=== PATIENT | female | born 1995 | race Caucasian/White ===

== ENCOUNTER 2019-11-27 16:17 | Emergency (ER) | payer BC ==
[2019-11-27] MEDS ORDERED: Bacitracin Oint 1 GM U/D Packet TOP ONE (17:02)
--- NOTE | 2019-11-27 17:22 | EDM.PDOC ---
ED HPI GENERAL MEDICAL PROBLEM - General Chief Complaint: Skin Complaint Stated Complaint: FISH HOOK/LT LEG Time Seen by Provider: 11/27/19 17:01 Source of Information: Reports: Patient, Family, RN Notes Reviewed History Limitations: Reports: No Limitations - History of Present Illness INITIAL COMMENTS - FREE TEXT/NARRATIVE: 24-year-old female presents emergency department with a fishhook to her left leg no functional complaints left leg Pain Score (Numeric/FACES): 3 - Related Data Allergies Allergy/AdvReac Type Severity Reaction Status Date / Time No Known Allergies Allergy Verified 11/27/19 16:36 Home Meds: Home Meds Citalopram Hydrobromide [Celexa] 20 mg PO DAILY 11/27/19 [History] Past Medical History Respiratory History: Reports: Asthma Psychiatric History: Reports: Depression Social & Family History - Tobacco Use Smoking Status *Q: Never Smoker - Recreational Drug Use Recreational Drug Use: No ED ROS GENERAL - Review of Systems Review Of Systems: See Below Skin: Reports: Wound ED EXAM, SKIN/RASH Exam: See Below Text/Narrative:: Barbed fishhook is appreciated in the left thigh after local anesthesia with 1% lidocaine approximately 2 cc an 18-gauge needle is used to cover the meri on the fishhook and then it is backed out Exam Limited By: No Limitations General Appearance: Alert, WD/WN, No Apparent Distress Course - Vital Signs Last Recorded V/S: Last Vital Signs Temp 95.8 F L 11/27/19 16:34 Pulse 88 11/27/19 16:34 Resp 16 11/27/19 16:34 BP 99/61 11/27/19 16:34 Pulse Ox 96 11/27/19 16:34 - Orders/Labs/Meds Meds: Medications Discontinued Medications Generic Name Dose Route Start Last Admin Trade Name Ethanq PRN Reason Stop Dose Admin Bacitracin 1 dose 11/27/19 17:02 11/27/19 17:09 Bacitracin Oint 1 Gm TOP 11/27/19 17:03 1 dose ONETIME ONE Administration Lidocaine HCl 5 ml 11/27/19 17:02 11/27/19 17:09 Xylocaine-Mpf 1% INJECT 11/27/19 17:03 5 ml ONETIME ONE Administration Departure - Departure Time of Disposition: 17:20 Disposition: Home, Self-Care 01 Condition: Fair Clinical Impression: Fish hook injury of left lower leg Qualifiers: Encounter type: initial encounter Qualified Code(s): S89.92XA - Unspecified injury of left lower leg, initial encounter - Discharge Information Referrals: PCP,None [Primary Care Provider] - Additional Instructions: Follow wound care instruction sheet, follow-up primary care as needed Sepsis Event Note (ED) - Evaluation Sepsis Screening Result: No Definite Risk - Focused Exam Vital Signs: Vital Signs Temp Pulse Resp BP Pulse Ox 11/27/19 16:34 95.8 F L 88 16 99/61 96 - Assessment/Plan Plan: Assessment Acuity = acute Site and laterality = fishhook left leg Etiology = trouble hook Manifestations = none Location of injury = Home Lab values = none Plan Follow wound care instruction sheet follow-up primary care as needed This note was dictated using [employer] voice recognition software please call with any questions on syntax or grammar.
== END 2019-11-27 17:32 | disposition home or self-care (01) ==
LOC: JP.ED 16:17
DX: S70.352A Superficial foreign body, left thigh, initial encounter (principal); J45.909 Unspecified asthma, uncomplicated; F32.9 Major depressive disorder, single episode, unspecified; Z79.899 Other long term (current) drug therapy; W45.8XXA Other foreign body or object entering through skin, initial encounter
CPT/HCPCS: 99283; J2001